=== PATIENT | male | born 1995 | race Caucasian/White ===

== ENCOUNTER 2022-08-07 08:58 | Emergency (ER) | payer OTHER ==
[~2022-08-07] VITALS: Ht 175.2 cm; Wt 61.2 kg
[~2022-08-07 08:58] MED LIST: EPI-PEN1 MG/ML MR; MEDROL DOSEPAK4 MG PO; NOVOLOG 70/30 M10 ML SC; ZANTAC 150150 MG PO
[2022-08-07] MEDS ORDERED: HUMALOG JU100 UNIT/1 SQ (09:10)
[2022-08-07] MEDS ORDERED: QUETIAPINE FUMA50 M1 PO (09:11)
[2022-08-07] MEDS ORDERED: ATORVASTATIN CA20 M1 PO (09:11)
[2022-08-07] MEDS ORDERED: IBU800 M1 PO (09:11)
[2022-08-07] MEDS ORDERED: FAMOTIDINE40 MG PO (09:12)
[2022-08-07] MEDS ORDERED: QUETIAPINE FUM400 M1 PO (09:12)
[2022-08-07] MEDS ORDERED: CARBAMAZEPINE100 M4 PO (09:13)
[2022-08-07] MEDS ORDERED: TIZANIDINE HCL4 MG PO (09:13)
[2022-08-07] MEDS ORDERED: GABAPENTIN600 MG PO (09:13)
[2022-08-07] MEDS ORDERED: VENT7GM INH (09:14)
[2022-08-07 10:03] LABS: BASO # 0.1 10*3/uL (0.0-0.1); BASO % 1.2 % (0.0-1.0); EOS # 0.1 10*3/uL (0.0-0.4); EOS % 0.7 % (1.0-4.0); HEMATOCRIT 43.9 % (42.0-52.0); LYMPH # 1.5 10*3/uL (1.3-4.4); LYMPH % 16.7 % (27.0-41.0); MEAN CELL VOLUME 96.7 fl (80.0-94.0); MEAN CORPUSCULAR HGB 33.3 pg (27.0-31.0); MEAN CORPUSCULAR HGB CONC 34.4 g/dl (33.0-37.0); MONO # 0.5 10*3/uL (0.1-1.0); MONO % 5.5 % (3.0-9.0); NEUT # 6.9 10*3/uL (2.3-7.9); NEUT % 75.5 % (47.0-73.0); PLATELET COUNT AUTOMATED 356 10*3/uL (130-400); RED BLOOD COUNT 4.54 10*6/uL (4.50-5.90); WHITE BLOOD COUNT 9.2 10*3/uL (4.8-10.8)
[2022-08-07 10:24] LABS: BILIRUBIN Negative (Negative); BLOOD Negative (Negative); CLARITY Clear (Clear); COLOR Yellow (Yellow); GLUCOSE 3+ (Negative); KETONE 3+ (Negative); LEUKO ESTERASE Negative (Negative); NITRITE Negative (Negative); PH 5.5 (4.5-8.0); SPECIFIC GRAVITY >= 1.030 (1.001-1.030)
[2022-08-07 10:31] LABS: ALKALINE PHOSPHATASE 109 U/L (46-116); BUN 16 mg/dl (9-23); CHLORIDE 95 mmol/L (98-107); LIPASE 29 U/L (12-53); POTASSIUM 4.5 mmol/L (3.4-5.1); SGPT/ALT 25 U/L (10-49); TOTAL PROTEIN 7.3 gm/dL (6.0-8.0)
[2022-08-07 11:04] LABS: BACTERIA TRACE; WBC 0-2 wbc/hpf (0-5)
== END 2022-08-07 18:30 | disposition left against medical advice (07) ==
LOC: ED 08:58
PROVIDERS: Internal Medicine
DX: E11.65 Type 2 diabetes mellitus with hyperglycemia (principal); R35.0 Frequency of micturition; M25.512 Pain in left shoulder; F31.9 Bipolar disorder, unspecified; Z88.8 Allergy status to other drugs, medicaments and biological substances; Z91.040 Latex allergy status

== ENCOUNTER 2023-06-21 19:04 | Emergency (ER) | payer OTHER ==
[~2023-06-21] VITALS: Ht 177.8 cm; Wt 56.7 kg
[~2023-06-21 19:04] MED LIST changes: +ATORVASTATIN CA20 M1 PO; +CARBAMAZEPINE100 M4 PO; +FAMOTIDINE40 MG PO; +GABAPENTIN600 MG PO; +HUMALOG JU100 UNIT/1 SQ; +IBU800 M1 PO; +QUETIAPINE FUM400 M1 PO; +QUETIAPINE FUMA50 M1 PO; +TIZANIDINE HCL4 MG PO; +VENT7GM INH
[2023-06-21] MEDS ORDERED: Lidocaine Hydrochloride 2 ML AMP SC ONE (19:40)
[2023-06-21] MEDS ORDERED: Bacitracin Zinc 14 GM TUBE T ONE (20:45)
== END 2023-06-21 20:58 | disposition home or self-care (01) ==
LOC: ED 19:04
DX: S61.217A Laceration without foreign body of left little finger without damage to nail, initial encounter (principal); W26.0XXA Contact with knife, initial encounter; Y93.89 Activity, other specified; Y92.89 Other specified places as the place of occurrence of the external cause; Y99.8 Other external cause status; Z88.8 Allergy status to other drugs, medicaments and biological substances; Z91.040 Latex allergy status